=== PATIENT | female | born 1935 | race Caucasian/White ===

== ENCOUNTER → 2016-08-20 | Outpatient (CLI) | payer BC | LOC: BRMIMAGING 10:53 | PROVIDERS: ATTEND Physician Assistant | DX: Z12.31 Encounter for screening mammogram for malignant neoplasm of breast (principal); Z80.3 Family history of malignant neoplasm of breast | CPT/HCPCS: G0202 ==

== ENCOUNTER → 2016-08-21 | Outpatient (CLI) | payer BC | LOC: BRMIMAGING 11:05 | PROVIDERS: ATTEND Physician Assistant | DX: Z13.820 Encounter for screening for osteoporosis (principal); M81.0 Age-related osteoporosis without current pathological fracture; S22.060A Wedge compression fracture of T7-T8 vertebra, initial encounter for closed fracture; M85.80 Other specified disorders of bone density and structure, unspecified site; Z78.0 Asymptomatic menopausal state ==

== ENCOUNTER → 2016-08-28 | Outpatient (CLI) | payer BC | LOC: BRMIMAGING 09:45 | PROVIDERS: ATTEND Physician Assistant | DX: Z03.89 Encounter for observation for other suspected diseases and conditions ruled out (principal); Z82.62 Family history of osteoporosis | CPT/HCPCS: 76641-PO; G0206 ==

== ENCOUNTER → 2017-04-02 | Outpatient (CLI) | payer BC | LOC: BRMIMAGING 09:14 | PROVIDERS: ATTEND Physician Assistant | DX: R92.8 Other abnormal and inconclusive findings on diagnostic imaging of breast (principal) | CPT/HCPCS: G0206 ==

== ENCOUNTER → 2018-02-10 | Outpatient (CLI) | payer BC | LOC: BRMIMAGING 10:50 | PROVIDERS: ATTEND Physician Assistant | DX: I51.7 Cardiomegaly (principal); J44.9 Chronic obstructive pulmonary disease, unspecified; M40.204 Unspecified kyphosis, thoracic region; K44.9 Diaphragmatic hernia without obstruction or gangrene; E66.9 Obesity, unspecified | CPT/HCPCS: 71046-PO ==